=== PATIENT | female | born 1985 | race Caucasian/White ===

== ENCOUNTER 2020-09-03 23:30 | Emergency (ER) | payer BC ==
[2020-09-03 23:43] VITALS: BP 139/97; PULSE 97
[2020-09-04] MEDS ORDERED: Iopamidol 755 Mg/ML 100 ML Bottle IV ONE (00:02)
--- NOTE | 2020-09-04 01:06 | EDM.PDOC ---
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 A week ago she was seen at the [facility] ED in [place] because of same problem and an US was done which showed an ovarian cyst but couldn't see a gestational sac intrauterine. 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: - Past Surgical History Musculoskeletal Surgical History: Reports: Arthroscopic Knee, Other (See Below) Other Musculoskeletal Surgeries/Procedures:: lumbar discectomy Social & Family History - Tobacco Use Tobacco Use Status *Q: Never Tobacco User - Caffeine Use Caffeine Use: Reports: None - Recreational Drug Use Recreational Drug Use: No ED ROS GENERAL - Review of Systems Review Of Systems: See Below Constitutional: Reports: No Symptoms HEENT: Reports: No Symptoms Respiratory: Reports: No Symptoms Cardiovascular: Reports: No Symptoms Endocrine: Reports: No Symptoms GI/Abdominal: Reports: Abdominal Pain : Reports: Other (vagina l bleeding) Musculoskeletal: Reports: No Symptoms Skin: Reports: No Symptoms Neurological: Reports: No Symptoms Psychiatric: Reports: No Symptoms ED EXAM, GENERAL - Physical Exam Exam: See Below Exam Limited By: No Limitations General Appearance: Alert, No Apparent Distress Eye Exam: Bilateral Eye: PERRL Ears: Normal External Exam, Normal Canal, Normal TMs Nose: Normal Inspection, Normal Mucosa, No Blood Throat/Mouth: Normal Inspection Head: Atraumatic, Normocephalic Neck: Normal Inspection, Supple, Non-Tender, Full Range of Motion Respiratory/Chest: No Respiratory Distress, Lungs Clear, Normal Breath Sounds Cardiovascular: Normal Peripheral Pulses, Regular Rate, Rhythm, No Edema, No Gallop, No JVD, No Murmur, No Rub GI/Abdominal: Normal Bowel Sounds, Soft, Non-Tender, No Organomegaly, No Distention, No Abnormal Bruit, Other (tenderness over the suprapubic area and LLQ/RLQ) Back Exam: Normal Inspection, Full Range of Motion Extremities: Normal Inspection, Normal Range of Motion, Non-Tender Neurological: Alert, Oriented, CN II-XII Intact Course - Vital Signs Text/Narrative:: Lab reviewed and discussed with patient She just went to the restroom and said that she just have spotting without any bleeding and her pain is almost down to a 0 I offered her to be transferred to [facility] ED in [place] to have an US because we can't do it here but she refused because she has a transvaginal US scheduled this Sunday @ [facility]. Last Recorded V/S: Last Vital Signs Temp 36.6 C 09/03/20 23:39 Pulse 97 09/03/20 23:39 Resp 18 09/03/20 23:39 BP 139/97 H 09/03/20 23:39 Pulse Ox 100 09/03/20 23:39 - Orders/Labs/Meds Orders: Active Orders 24 hr Category Date Time Status Pelvis w Cont [CT] Stat Exams 09/03/20 23:53 Ordered Labs: Laboratory Tests 09/03/20 09/03/20 Range/Units 23:55 23:55 Sodium 139 (135-145) mmol/L Potassium 3.7 (3.5-5.3) mmol/L Chloride 102 (100-110) mmol/L Carbon Dioxide 27 (21-32) mmol/L BUN 9 (7-18) mg/dL Creatinine 0.9 (0.55-1.02) mg/dL Est Cr Clr Drug Dosing TNP Estimated GFR (MDRD) > 60 (>60) BUN/Creatinine Ratio 10.0 (9-20) Glucose 100 (80-116) mg/dL Calcium 8.4 L (8.6-10.2) mg/dL Total Bilirubin 0.6 (0.1-1.3) mg/dL AST 14 (5-25) IU/L ALT 19 (12-36) U/L Alkaline Phosphatase 48 L (56-112) IU/L Total Protein 7.0 (6.0-8.0) g/dL Albumin 3.8 (3.5-5.2) g/dL Globulin 3.2 g/dL Albumin/Globulin Ratio 1.2 HCG, Quant 1799 (<5) mIU/mL Meds: Medications Discontinued Medications Generic Name Dose Route Start Last Admin Trade Name Nanci PRN Reason Stop Dose Admin Iopamidol 100 ml 09/04/20 00:02 Iopamidol 755 Mg/Ml 100 Ml Bottle IV 09/04/20 00:03 . DIRECTED ONE Departure - Departure Time of Disposition: 01:05 Disposition: Home, Self-Care 01 Condition: Good Clinical Impression: Vaginal bleeding before 22 weeks gestation - Discharge Information Instructions: Vaginal Bleeding During , First Trimester Referrals: Samra Albert NP [Primary Care Provider] - Forms: ED Department Discharge Additional Instructions: please read vaginal bleeding dusrin the first trimester Tylenol 1000 mg every 8 hours as needed for pain If your bleed and pain reoccur go to [facility] right away to have an ultrasound done, otherwise, keep your appointment for an Ultrasound on Sunday with your clinic Sepsis Event Note (ED) - Evaluation Sepsis Screening Result: No Definite Risk - Focused Exam Vital Signs: Vital Signs Temp Pulse Resp BP Pulse Ox 09/03/20 23:39 36.6 C 97 18 139/97 H 100 - My Orders Last 24 Hours: My Active Orders 09/03/20 23:53 Pelvis w Cont [CT] Stat - Assessment/Plan Last 24 Hours: My Active Orders 09/03/20 23:53 Pelvis w Cont [CT] Stat
== END 2020-09-04 01:10 | disposition home or self-care (01) ==
LOC: FB.ED 23:30
DX: O20.9 Hemorrhage in early pregnancy, unspecified (principal); O99.511 Diseases of the respiratory system complicating pregnancy, first trimester; J45.909 Unspecified asthma, uncomplicated; Z88.1 Allergy status to other antibiotic agents; Z3A.01 Less than 8 weeks gestation of pregnancy
CPT/HCPCS: 36415; 80053; 84702; 99284